=== PATIENT | female | born 1965 | race Caucasian/White ===

== ENCOUNTER 2018-04-26 07:49 | Day surgery (SDC) | payer OTHER, BC ==
[2018-04-26] MEDS ORDERED: Ondansetron 4 MG/2 ML SDV IVPUSH ONE (07:50)
[2018-04-26] MEDS ORDERED: Ketorolac 30 MG/ML SDV IVPUSH ONE (07:50)
[2018-04-26] MEDS ORDERED: Lidocaine 2% 100 MG/5 ML Syringe IVPUSH ONE (07:50)
[2018-04-26] MEDS ORDERED: fentaNYL 100 MCG/2 ML SDV IV ONE (07:50)
[2018-04-26] MEDS ORDERED: Dexamethasone 4 MG/ML 5 ML MDV IVPUSH ONE (07:50)
[2018-04-26] MEDS ORDERED: Midazolam 1 MG/ML 2 ML SDV IV ONE (07:50)
[2018-04-26] MEDS ORDERED: Propofol 200 MG/20 ML SDV IV ONE (07:50)
[2018-04-26] MEDS: Lactated Ringers 1,000 ML IV SCH (08:41)
[2018-04-26] MEDS: ceFAZolin 1 GM Vial IVPUSH ONE (09:22)
[2018-04-26] MEDS ORDERED: ceFAZolin 1 GM in Sodium Chloride 0.9% 50 ML IV ONE (09:30)
[2018-04-26] MEDS: Lidocaine 1% with EPINEPHrine 1:100,000 20 ML MDV ONE (09:53)
[2018-04-26] MEDS: Bupivacaine 0.5% 50 ML MDV ONE (09:53)
--- NOTE | 2018-04-26 10:22 | PCM.OPNOTE ---
- General Post-Op/Procedure Note Date of Surgery/Procedure: 04/26/18 Operative Procedure(s): umbilical hernia repair with mesh Findings: umbilical hernia Pre Op Diagnosis: umbilical hernia no obstruction or gangrene Post-Op Diagnosis: Same Anesthesia Technique: General LMA, Local (6 ml 1 % lido with epi/0.5% buvipicaine) Primary Surgeon: Wili Juarez Anesthesia Provider: Enzo Dixon Pathology: none EBL in mLs: 1 Complications: None Condition: Good Free Text/Narrative:: see dictation [id number]
[2018-04-26] MEDS ORDERED: Acetaminophen/HYDROcodone 325-5 MG Tab PO PRN (10:23)
[2018-04-26 12:03] VITALS: BP 125/83
--- NOTE | 2018-04-26 12:09 | OR ---
DATE OF OPERATION: 04/26/2018 SURGEON: Wili Juarez MD PROCEDURE PERFORMED: Umbilical hernia repair with mesh. PREOPERATIVE DIAGNOSIS: Umbilical hernia without mention of obstruction or gangrene. POSTOPERATIVE DIAGNOSIS: Umbilical hernia without mention of obstruction or gangrene. INDICATIONS FOR PROCEDURE: This is a 52-year-old white female who was referred with a history of an umbilical hernia. She was offered and accepted repair. DESCRIPTION OF OPERATION: After an excellent LMA anesthetic was administered, the patient was prepped and draped in usual sterile manner. A 6 mL of 1:1 mixture of 1% lidocaine with epinephrine and 0.5% bupivacaine were used to infiltrate the area around the umbilicus. A curvilinear incision was made at the base of the umbilicus and blunt dissection was carried out dissecting the umbilical hernia sac from the surrounding structures. The sac was then opened and dissected from the posterior aspect of the umbilicus. The preperitoneal fat was reduced. The hernia sac was excised and passed off the field. A Ventralex ST hernia patch, reference number [id number], expiration date 03/08/2019, lot number [id number] was then inserted into the defect and then sewn into position using a running 0 Prolene. 0 Vicryl was used to tack the umbilicus to the anterior abdominal wall. The wound was then irrigated and then the skin was approximated with a running subcu 4-0 Vicryl. Steri-Strips were applied. Needle, sponge, and instrument counts were reported as correct. The patient was taken to recovery room in good condition. /[id number] /MODL
== END 2018-04-26 11:55 | disposition home or self-care (01) ==
LOC: FB.SDS 07:49
PROVIDERS: ATTEND Surgery
DX: K42.9 Umbilical hernia without obstruction or gangrene (principal); F41.9 Anxiety disorder, unspecified; F17.210 Nicotine dependence, cigarettes, uncomplicated; Z88.2 Allergy status to sulfonamides; Z91.040 Latex allergy status; Z79.1 Long term (current) use of non-steroidal anti-inflammatories (NSAID); Z79.899 Other long term (current) drug therapy
CPT/HCPCS: C1781; J0690; J1100; J1885; J2001; J2250; J2405; J2704; J3010; J3490; J7120